=== PATIENT | female | born 1995 | race Caucasian/White ===

== ENCOUNTER 2017-04-15 15:46 | Inpatient (IN) ==
[2017-04-15] MEDS ORDERED: ONDANSETRON 4 MG/2 ML VIAL IV PRN (16:08)
[2017-04-15] MEDS ORDERED: DINOPROSTONE VAG GEL 10 MG SYRINGE VAG ONE (16:11)
[2017-04-15] MEDS ORDERED: OXYTOCIN/LR 20 UNIT/1,000 ML BAG IV SCH (16:30)
[2017-04-15 16:37] LABS: Basophils # 0.1 10*3/uL (0.0-0.2); Basophils % 0.5 % (0.0-0.8); Eosinophils # 0.1 10*3/uL (0.0-0.87); Eosinophils % 0.7 % (0.00-10.9); Hematocrit 33.9 VOL% (35.7-47.0); Hemoglobin 11.3 GM/DL (12.0-16.0); Immature Granulocytes Absolute 0.11 #; Lymphocytes # 1.7 10*3/uL (1.4-4.0); Lymphocytes % 15.5 % (21.3-54.2); Mean Corpuscular HGB Conc 33.3 GM/DL (32-36); Mean Corpuscular Hemoglobin 28 PG (27-34); Mean Corpuscular Volume 84.1 FL (87-102); Mean Platelet Volume 12.2 FL (9.6-12.0); Monocytes # 1.1 10*3/uL (0.11-0.8); Neutrophils # 7.7 10*3/uL (1.4-7.4); Neutrophils % 72.3 % (38.7-73.9); Platelet Count 179 T/CUMM (130-400); Red Blood Count 4.03 MC/CUMM (3.8-5.5); Red Cell Distribution Width 13.5 % (9.3-17.3); White Blood Count 10.7 T/CUMM (4-12)
[2017-04-15 16:58] LABS: Alanine Aminotransferase 14 U/L (13-56); Albumin 2.8 G/DL (3.4-5.0); Alkaline Phosphatase 198 U/L (45-117); Aspartate Amino Transferase 18 U/L (0-37); Bilirubin,Total < 0.39 MG/DL (0.2-1.0); Blood Urea Nitrogen 8 MG/DL (7-18); Calcium 8.5 MG/DL (8.5-10.1); Glucose 86 MG/DL (74-106); Potassium 4.1 MMOL/L (3.5-5.1); Sodium 136 MMOL/L (136-145); Total Protein 6.8 G/DL (6.4-8.3); Uric Acid 4.5 MG/DL (2.6-6.0)
--- NOTE | 2017-04-15 18:00 | OB/GYN History & Physical ---
History of Present Illness Chief complaint: In for elective induction of labor due to term . History of present illness: Ms. Nicholas is a 22 year old female primigravida with an SUMIT of 04/19/2017 for an estimated gestational age of 39 weeks and 2 days. The patient presents for elective induction of labor due to term . The risk and benefits has been thoroughly discussed with this patient and significant other, plan of care has been discussed with Dr. Crowder and all parties were in agreement plan. The patient received her care at the [facility], she received routine care and her course was uneventful. labs she is rubella immune, RPR is nonreactive, hepatitis B negative, HIV negative, GBS culture status unknown. Review of systems is negative with exception of above. Home Medications Medication Instructions Recorded Confirmed Type No Known Home Medications [No 01/29/15 01/29/15 History Known Home Medications] Allergies Allergy/AdvReac Type Severity Reaction Status Date / Time sulfamethoxazole Allergy RASH Verified 01/29/15 12:08 [From Bactrim] trimethoprim [From Bactrim] Allergy RASH Verified 01/29/15 12:08 12 point system: reviewed and no additional remarkable complaints except as stated Medical,Surgical,& Family Hx - Medical History Medical History: noncontributory - Surgical History Surgical History: noncontributory - Family History Family History: Reports;: Family Cancer (GRANDFATHER PROSTATE), Family Diabetes (Uncle), Family Hypertension (Father and uncle) - Social History Smoking Status: Never smoker Frequency of Alcohol Use: None Type of Drug Use: None Marital Status: Single Lives With:: Significant Other Functional capacity: 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 General appearance: no acute distress - Antepartum / Post Antepartum Exam Cervix - Dilatation: 2 cm Effacement: 50% Station: -2 Rupture: Intact Presentation: Vertex Heart Rate: 140s Breast: bilateral: normal Abdomen obstetrics: Present: bowel sounds normal Vulva: bilateral: normal Vagina: Present: normal moisture Cervix: Present: normal Uterus exam: Present: enlarged Anus/Rectum: Present: normal perianal skin - Respiratory Respiratory exam: Present: clear to auscultation bilaterally - Cardiovascular Cardiovascular exam: Present: regular rate and rhythm - GI/Abdominal GI/Abdominal exam: Present: normal bowel sounds, soft - Extremities Exam Extremities exam: Present: normal inspection - Back Exam Back exam: Present: normal inspection - Neurological Exam Neurological exam: Present: alert, oriented X3 - Psychiatric Psychiatric exam: Present: normal affect, normal mood - Skin Skin exam: Present: normal color, warm Assessment and Plan (1) 39 weeks gestation of Status: Acute Assessment and plan: Admit IV fluids IV Pitocin per protocol Artificial rupture membranes when appropriate Internal monitors if indicated Epidural anesthesia if desired IV antibiotics prophylactically for unknown GBS status Anticipate Current Visit: Yes Results - Labs CBC & BMP: 04/15/17 16:24 04/15/17 16:23
[2017-04-15] MEDS: LACTATED RINGERS 1,000 ML IV SCH ×2 (18:08→22:47)
[2017-04-15] MEDS ORDERED: FAMOTIDINE 20 MG/2 ML VIAL IV ONE (18:40)
[2017-04-15] MEDS ORDERED: CITRIC ACID/SODIUM CITRATE 30 ML UDCUP PO ONE (18:40)
[2017-04-15] MEDS ORDERED: fentaNYL 2 MCG/ROPIV 0.2% EPID 150 ML EPIDURAL SCH (18:40)
[2017-04-15] MEDS ORDERED: hydrOXYzine HCL 25 MG/1 ML VIAL IM PRN (18:40)
[2017-04-15] MEDS ORDERED: diphenhydrAMINE 50 MG/1 ML VIAL IV PRN ×2 (18:40)
[2017-04-15] MEDS ORDERED: ePHEDrine 50 MG/ML AMP IV PRN (18:40)
[2017-04-15] MEDS ORDERED: PROMETHAZINE 25 MG/1 ML VIAL IM ONE (18:40)
[2017-04-15] MEDS ORDERED: LACTATED RINGERS 1,000 ML IV ONE (18:40)
[2017-04-16] MEDS ORDERED: AMPICILLIN INJ 2,000 MG in SODIUM CHLORIDE 0.9% 100 ML IV ONE ×2 (00:05→03:00)
[2017-04-16 00:21] LABS: Apearance,Urine Slightly Hazy (Clear); Bilirubin,Urine Negative (Negative); Blood, Urine Negative (Negative); Glucose,Urine (UA) Negative (Negative); Ketones,Urine 80 mg/dL (Negative); Mucus,Urine Moderate /LPF (Occasional); Nitrite,Urine Negative (Negative); Protein,Urine Negative; RBC,Urine 1 /HPF (0-4); Squamous Epithelial Cell,Urine Occasional /HPF (0-10); Urine Color Yellow (Yellow); Urine Specific Gravity 1.023 (1.001-1.035); Urine Urobilinogen < 2.0 EU/DL (0.2-1.0); WBC,Urine 2 /HPF (0-6)
[2017-04-16] MEDS ORDERED: OXYTOCIN/LR 20 UNIT/1,000 ML BAG IV SCH (03:00)
--- NOTE | 2017-04-16 04:01 | Event Note ---
0350: Artificial rupture of membranes performed with clear fluid noted. Vaginal exam performed; the patient is 4 cm dilated/90% effaced/vertex is presenting at a -2 station. She has an epidural and is comfortable.
[2017-04-16] MEDS: AMPICILLIN INJ 1,000 MG in SODIUM CHLORIDE 0.9% 100 ML IV SCH ×2 (04:03→10:24)
[2017-04-16] MEDS ORDERED: AMPICILLIN INJ 1,000 MG in SODIUM CHLORIDE 0.9% 100 ML IV SCH (07:00)
[2017-04-16] MEDS ORDERED: MEPERIDINE 50 MG/1 ML VIAL ONE (10:17)
--- NOTE | 2017-04-16 10:21 | Event Note ---
HPI: Ms. Varma presented to the labor department for elective induction of labor due to term . Her labor was induced with Prostin gel and IV Pitocin per protocol. The risk and benefits were thoroughly discussed with this patient and significant, plan of care was also discussed with Dr. Crowder and all parties were in agreement with plan. Stage I: The patient was admitted and received IV fluids and Prostin gel per protocol. She progressed in labor throughout the night with a CAT 1 tracing. Artificial rupture membranes was performed clear fluid noted. The patient received an epidural for pain control. She continued to progress in labor with a CAT 1 tracing. She had an uneventful course of labor. Stage II: The patient was complete and complained of pressure and strong desire to push. She pushed for approximately 45 minutes after which time a second- degree midline episiotomy was performed. She pushed for approximately 5 more minutes after this. The infant's head was then delivered, the mouth and nose were suctioned on the perineum. The remainder the was delivered at 957, a viable male was noted. Apgars were 9 at 1 minute and 9 at 5 minutes. weight was 8 pounds even. A cord pH was obtained and sent to the lab. The infant was placed on the mom's abdomen for skin to skin bonding Stage III: A spontaneous delivery of a Castaneda placenta with a three-vessel cord noted. The placenta was further examined. Grossly intact. The vagina cervix inspected with no additional tears or lacerations noted. The episiotomy was repaired in the usual fashion. Epidural anesthesia remain in effect on repair. Estimated blood loss was approximately 200 cc. At the time of dictation mother and baby are both in stable condition.
[2017-04-16 10:27] LABS: Cord Venous Blood PCO2 36.8 MMHG; Cord Venous Blood PO2 39.6
[2017-04-16] MEDS ORDERED: ACETAMINOPHEN/CODEINE 300-30 MG TABLET PO PRN (10:28)
[2017-04-16] MEDS ORDERED: IBUPROFEN 800 MG TABLET ONE (11:30)
[2017-04-16] MEDS ORDERED: RHO(D) IMMUNE GLOBULIN 300 MCG SYRINGE IM ONE (11:34)
[2017-04-16] MEDS ORDERED: MEASLES/MUMPS/RUBELLA VACCINE 0.5 ML VIAL SUBCUT ONE (11:34)
[2017-04-16] MEDS ORDERED: BISACODYL 10 MG SUPP RECTAL PRN (11:34)
[2017-04-16] MEDS ORDERED: WITCH HAZEL PADS 100/JAR TOP PRN (11:34)
[2017-04-16] MEDS ORDERED: LANOLIN 50% CREAM 0.3 OZ TUBE TOP PRN (11:34)
[2017-04-16] MEDS ORDERED: BENZOCAINE 20%/MENTHOL 0.5% SPRAY 56 GM CAN TOP PRN (11:34)
[2017-04-16] MEDS ORDERED: HYDROCORTISONE 2.5% RECTAL CREAM 30 GM TUBE TOP PRN (11:34)
[2017-04-16] MEDS ORDERED: ACETAMINOPHEN 325 MG TABLET PO PRN (11:34)
[2017-04-16] MEDS ORDERED: DIPH/TET/ACEL PERT BOOSTER VACCINE 0.5 ML VIAL IM ONE (11:34)
[2017-04-16] MEDS: IBUPROFEN 800 MG TABLET PO PRN ×2 (12:00→20:15)
[2017-04-16] MEDS ORDERED: OXYTOCIN/LR 20 UNIT/1,000 ML BAG IV ONE (12:57)
[2017-04-16] MEDS: oxyCODONE/ACETAMINOPHEN 5-325 MG TABLET PO PRN ×2 (17:00→22:50)
--- NOTE | 2017-04-16 18:12 | Anesthesia Post-Op ---
Anesthesia Post OP - Post Ansesthetic Evaluation Patient seen in post op: Yes Resp: within normal limits CV: within normal limits Mental: within normal limits Temp: within normal limits [id number]: within normal limits Nausea and Vomiting: within normal limits Pain: within normal limits
[2017-04-16] MEDS: DOCUSATE SODIUM 100 MG CAPSULE PO SCH (21:16)
[2017-04-17] MEDS: IBUPROFEN 800 MG TABLET PO PRN ×3 (02:30→18:05)
[2017-04-17 06:18] LABS: Basophils # 0.1 10*3/uL (0.0-0.2); Basophils % 0.4 % (0.0-0.8); Eosinophils # 0.1 10*3/uL (0.0-0.87); Eosinophils % 0.9 % (0.00-10.9); Hematocrit 24.3 VOL% (35.7-47.0); Immature Granulocytes % 0.9 %; Immature Granulocytes Absolute 0.11 #; Lymphocytes # 2.3 10*3/uL (1.4-4.0); Lymphocytes % 19.6 % (21.3-54.2); Mean Corpuscular HGB Conc 32.9 GM/DL (32-36); Mean Corpuscular Hemoglobin 28 PG (27-34); Mean Corpuscular Volume 84.7 FL (87-102); Mean Platelet Volume 12.4 FL (9.6-12.0); Monocytes # 1.2 10*3/uL (0.11-0.8); Monocytes % 10.5 % (1.7-12.7); Neutrophils % 67.7 % (38.7-73.9); Platelet Count 126 T/CUMM (130-400); Red Blood Count 2.87 MC/CUMM (3.8-5.5); Red Cell Distribution Width 13.6 % (9.3-17.3); White Blood Count 11.8 T/CUMM (4-12)
[2017-04-17] MEDS: oxyCODONE/ACETAMINOPHEN 5-325 MG TABLET PO PRN ×3 (07:37→20:33)
[2017-04-17] MEDS: DOCUSATE SODIUM 100 MG CAPSULE PO SCH ×2 (09:06→20:33)
[2017-04-17] MEDS: FERROUS SULFATE 325 MG TABLET PO SCH ×2 (09:06→20:33)
--- NOTE | 2017-04-17 09:35 | OB/GYN Progress Note ---
Assessment and Plan (1) 39 weeks gestation of Status: Acute Assessment and plan: Admit IV fluids IV Pitocin per protocol Artificial rupture membranes when appropriate Internal monitors if indicated Epidural anesthesia if desired IV antibiotics prophylactically for unknown GBS status Anticipate Current Visit: Yes (2) Vaginal delivery Status: Acute Assessment and plan: Initiate routine orders. 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 Bonding well with infant. 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 Vitals: Vital Signs Temp Pulse Resp BP Pulse Ox 04/17/17 07:25 96.8 F L 88 18 102/57 97 04/17/17 06:00 17 04/17/17 05:00 17 04/17/17 04:00 97.8 F 82 17 90/51 96 04/17/17 03:00 17 04/17/17 01:00 17 04/17/17 00:00 97.3 F L 93 H 18 95/63 96 04/16/17 20:00 97.3 F L 99 H 19 100/58 99 04/16/17 15:34 97.7 F 91 H 20 115/63 98 04/16/17 14:30 90 20 119/67 98 04/16/17 13:30 90 20 117/63 99 04/16/17 12:30 105 H 18 116/67 99 04/16/17 12:00 102 H 20 117/68 99 04/16/17 11:30 97.0 F L 91 H 18 116/73 99 General appearance: no acute distress - Antepartum / Post Post Exam Abdomen obstetrics: Present: bowel sounds normal Vagina: Present: normal moisture, discharge (Light to moderate lochia rubra) Uterus exam: Present: enlarged (Fundus firm and midline) Anus/Rectum: Present: normal perianal skin - Head Head exam: Present: normal inspection - Respiratory Respiratory exam: Present: clear to auscultation bilaterally - Cardiovascular Cardiovascular exam: Present: regular rate and rhythm - GI/Abdominal GI/Abdominal exam: Present: normal bowel sounds, soft - Extremities Exam Extremities exam: Present: normal inspection - Neurological Exam Neurological exam: Present: alert, oriented X3 - Psychiatric Psychiatric exam: Present: normal affect, normal mood - Skin Skin exam: Present: normal color, warm Results - Labs CBC & BMP: 04/17/17 05:41 04/15/17 16:23
[2017-04-18] MEDS: IBUPROFEN 800 MG TABLET PO PRN (00:46)
[2017-04-18] MEDS: oxyCODONE/ACETAMINOPHEN 5-325 MG TABLET PO PRN ×2 (03:55→10:11)
[2017-04-18 07:48] VITALS: BP 104/63
--- NOTE | 2017-04-18 09:12 | Discharge Summary ---
Hospital Course - Hospital Course Hospital Course: Ms. Nicholas presented to the labor department for elective induction of labor due to term . She subsequently delivered a viable infant with no complications. She has followed a normal postoperative course and she has done well. Her bleeding is minimal with no odor. Her fundus is firm midline. Her perineum is intact with no edema. Her bleeding is minimal with no odor. Her vital signs and lab values are stable. She is bonding well with her infant. Contraception options has been discussed with this patient and she desires to take OCPs upon discharge. She will be discharged home prescriptions for pain and follow-up appointment in our office. Diagnosis - Discharge Diagnosis (1) 39 weeks gestation of Status: Acute (2) Vaginal delivery Status: Acute Specialty Discharge - Follow Up or Referrals Follow up with: Daphne Crowder MD [Physician] - 05/30/17 9:20 am Discharge Plan - Discharge Data Disposition: Disch To Home/Self Care Condition at Discharge: Discharge Diet: advance to your usual diet, regular diet Activity: resume usual activities as tolerated Hygiene: no restrictions Weight Bearing at Discharge: weight bear as tolerated Driving: no restrictions Contact your physician if you experience:: fever over 101, Difficulty voiding, Shortness of breath, pain uncontrolled by pain medications - Discharge Medications New Ferrous Sulfate Tab [Feosol Original Tab] 325 mg PO BID #60 tablet Acetamin/Codeine 300-30 Tab [Tylenol/Codeine #3] 2 tablet PO Q4H PRN #30 tablet PRN Reason: Pain Mild (1-3) Ibuprofen Tab [Motrin Tab] 800 mg PO Q6H PRN #30 tablet PRN Reason: Pain Moderate (4-7) No Action No Known Home Medications [No Known Home Medications] - Follow Up or Referral Follow Up: Daphne Crowder MD [Physician] - 05/30/17 9:20 am - Forms/Instructions Exam - Constitutional Vitals: Period Temp Pulse Resp BP Sys/Warren Pulse Ox Last 24 Hr 97.0 F-98.3 F 72-97 16-20 104-115/63-72 96-98 General appearance: normal weight, no acute distress - Respiratory Respiratory exam: Present: clear to auscultation bilaterally - Cardiovascular Cardiovascular exam: Present: regular rate and rhythm - GI/Abdominal GI/Abdominal exam: Present: normal bowel sounds, soft - Extremities Exam Extremities exam: Present: normal inspection - Back Exam Back exam: Present: normal inspection - Neurological Exam Neurological exam: Present: alert, oriented X3 - Psychiatric Psychiatric exam: Present: normal affect, agitated - Skin Skin exam: Present: normal color, warm DS: Provider Date of admission: 04/15/17 16:09 Primary care physician: . No PCP Attending physician on admission: Daphne Crowder MD Consults: 04/15/17 16:09 Consult to Anesthesiology [CONS] Routine Consulting Provider: Reason for Anesthesiology: Epidural Consult Comment: Epidural for pain managment 04/16/17 11:34 Consult to Utility Operator Yarn [CONS] Routine Consult Utility Operator Yarn: Breast Feeding Discharging clinician: Leanna Callaway CNM Expected date of discharge: 04/18/17
[2017-04-18] MEDS: FERROUS SULFATE 325 MG TABLET PO SCH (09:24)
[2017-04-18] MEDS: DOCUSATE SODIUM 100 MG CAPSULE PO SCH (09:24)
== END 2017-04-18 13:50 | disposition home or self-care (01) | DRG 560 ==
LOC: N.LDOUT 15:46 → N.LD 15:49 → N.OB 04-16 11:27
PROVIDERS: ADMIT Obstetrics & Gynecology; ATTEND Obstetrics & Gynecology

== ENCOUNTER 2020-03-16 20:50 | Inpatient (IN) ==
[2020-03-16] MEDS ORDERED: ACETAMINOPHEN 325 MG TABLET PO PRN (21:16)
[2020-03-16] MEDS ORDERED: MEPERIDINE 50 MG/1 ML VIAL IM PRN (21:16)
[2020-03-16] MEDS ORDERED: SIMETHICONE CHEW 125 MG TABLET PO PRN (21:59)
[2020-03-16 22:02] LABS: Basophils % 0.4 % (0.0-0.8); Eosinophils # 0.1 10*3/uL (0.0-0.87); Eosinophils % 0.4 % (0.00-10.9); Hemoglobin 11.6 GM/DL (12.0-16.0); Immature Granulocytes % 0.7 %; Immature Granulocytes Absolute 0.08 #; Lymphocytes # 2.1 10*3/uL (1.4-4.0); Lymphocytes % 18.6 % (21.3-54.2); Mean Corpuscular HGB Conc 31.4 GM/DL (32-36); Mean Corpuscular Volume 83.9 FL (87-102); Mean Platelet Volume 12.1 FL (9.6-12.0); Monocytes % 9.6 % (1.7-12.7); Neutrophils % 70.3 % (38.7-73.9); Platelet Count 179 T/CUMM (130-400); Red Blood Count 4.41 MC/CUMM (3.8-5.5); Red Cell Distribution Width 17.7 % (9.3-17.3); White Blood Count 11.3 T/CUMM (4-12)
[2020-03-16] MEDS ORDERED: ALUMINUM/MAGNES/SIMETH MAX STR 30 ML UDCUP PO PRN (23:27)
[2020-03-17] MEDS: ONDANSETRON 4 MG/2 ML VIAL IV PRN ×3 (00:45→12:52)
[2020-03-17] MEDS: BUTORPHANOL 2 MG/ML VIAL IV PRN ×3 (00:48→06:29)
[2020-03-17] MEDS: LACTATED RINGERS 1,000 ML IV SCH ×2 (07:22→07:30)
[2020-03-17] MEDS ORDERED: ePHEDrine 50 MG/ML VIAL IV PRN (07:23)
[2020-03-17] MEDS ORDERED: PROMETHAZINE 25 MG/1 ML VIAL IM PRN (07:23)
[2020-03-17] MEDS ORDERED: NALOXONE 0.4 MG/ML VIAL IV PRN (07:23)
[2020-03-17] MEDS ORDERED: hydrOXYzine HCL 25 MG/1 ML VIAL IM PRN (07:23)
[2020-03-17] MEDS ORDERED: FAMOTIDINE 20 MG/2 ML VIAL IV ONE (07:23)
[2020-03-17] MEDS ORDERED: CITRIC ACID/SODIUM CITRATE 30 ML UDCUP PO ONE (07:23)
[2020-03-17] MEDS ORDERED: diphenhydrAMINE 50 MG/1 ML VIAL IV PRN ×2 (07:23)
[2020-03-17] MEDS ORDERED: OXYTOCIN/LR 20 UNIT/1,000 ML BAG IV SCH (07:30)
[2020-03-17] MEDS ORDERED: fentaNYL 2 MCG/ROPIV 0.2% EPID 100 ML EPIDURAL SCH (07:30)
[2020-03-17] MEDS ORDERED: MEPERIDINE 50 MG/1 ML VIAL IV PRN (08:11)
[2020-03-17] MEDS ORDERED: miSOPROStoL 200 MCG TABLET ONE (11:40)
[2020-03-17] MEDS ORDERED: TRANEXAMIC ACID 1,000 MG/10 ML VIAL ONE (11:41)
[2020-03-17] MEDS ORDERED: METHYLERGONOVINE 0.2 MG/1 ML AMP ONE (11:41)
[2020-03-17] MEDS ORDERED: CARBOPROST TROMETHAMINE 250 MCG/ML AMP IM ONE (11:41)
[2020-03-17 11:52] LABS: Amorphous Crystals,Urine Moderate /HPF (Few); Apearance,Urine Slightly Hazy (Clear); Bilirubin,Urine Negative (Negative); Blood, Urine Negative (Negative); Glucose,Urine (UA) Negative (Negative); Ketones,Urine 20 mg/dL (Negative); Mucus,Urine Occasional /LPF (Occasional); Nitrite,Urine Negative (Negative); Protein,Urine Negative; RBC,Urine 1 /HPF (0-4); Urine Color Yellow (Yellow); Urine Specific Gravity 1.015 (1.001-1.035); Urine Urobilinogen < 2.0 EU/DL (0.2-1.0)
[2020-03-17] MEDS ORDERED: BISACODYL 10 MG SUPP RECTAL PRN (12:08)
[2020-03-17] MEDS ORDERED: BENZOCAINE 20%/MENTHOL 0.5% SPRAY 56 GM CAN TOP PRN (12:08)
[2020-03-17] MEDS ORDERED: WITCH HAZEL PADS 100/JAR TOP PRN (12:08)
[2020-03-17] MEDS ORDERED: HYDROCORTISONE 2.5% RECTAL CREAM 30 GM TUBE TOP PRN (12:08)
[2020-03-17] MEDS ORDERED: MEASLES/MUMPS/RUBELLA VACCINE 0.5 ML VIAL SUBCUT ONE (12:08)
[2020-03-17] MEDS ORDERED: LANOLIN 50% CREAM 0.3 OZ TUBE TOP PRN (12:08)
[2020-03-17] MEDS ORDERED: DIPH/TET/ACEL PERT BOOSTER VACCINE 0.5 ML VIAL IM ONE (12:08)
[2020-03-17] MEDS ORDERED: oxyCODONE/ACETAMINOPHEN 5-325 MG TABLET PO PRN (12:08)
[2020-03-17] MEDS ORDERED: ONDANSETRON 4 MG/2 ML VIAL IV PRN (12:08)
[2020-03-17] MEDS ORDERED: RHO(D) IMMUNE GLOBULIN 300 MCG SYRINGE IM ONE (12:08)
[2020-03-17] MEDS ORDERED: ACETAMINOPHEN 325 MG TABLET PO PRN (12:08)
[2020-03-17] MEDS ORDERED: OXYTOCIN/LR 20 UNIT/1,000 ML BAG IV ONE (12:08)
[2020-03-17 12:16] LABS: Cord Arterial Blood HCO3 27.1 MMOL/L
[2020-03-17 12:19] LABS: Cord Venous Blood HCO3 24.2 MMOL/L; Cord Venous Blood PCO2 41.4 MMHG
[2020-03-17] MEDS ORDERED: ONDANSETRON 4 MG TABLET PO PRN (16:08)
[2020-03-17] MEDS: IBUPROFEN 800 MG TABLET PO PRN ×2 (16:30→22:47)
[2020-03-17] MEDS: oxyCODONE/ACETAMINOPHEN 5-325 MG TABLET PO PRN ×2 (16:30→22:47)
[2020-03-17] MEDS: DOCUSATE SODIUM 100 MG CAPSULE PO SCH (21:17)
[2020-03-18] MEDS: oxyCODONE/ACETAMINOPHEN 5-325 MG TABLET PO PRN (05:08)
[2020-03-18] MEDS: IBUPROFEN 800 MG TABLET PO PRN (05:09)
[2020-03-18 07:01] LABS: Basophils # 0.1 10*3/uL (0.0-0.2); Basophils % 0.6 % (0.0-0.8); Eosinophils # 0.1 10*3/uL (0.0-0.87); Eosinophils % 0.7 % (0.00-10.9); Hematocrit 33.1 VOL% (35.7-47.0); Hemoglobin 10.4 GM/DL (12.0-16.0); Immature Granulocytes % 0.6 %; Immature Granulocytes Absolute 0.06 #; Lymphocytes # 2.1 10*3/uL (1.4-4.0); Lymphocytes % 19.4 % (21.3-54.2); Mean Corpuscular HGB Conc 31.4 GM/DL (32-36); Mean Corpuscular Volume 85.1 FL (87-102); Mean Platelet Volume 12.5 FL (9.6-12.0); Monocytes % 9.5 % (1.7-12.7); Neutrophils % 69.2 % (38.7-73.9); Platelet Count 141 T/CUMM (130-400); Red Blood Count 3.89 MC/CUMM (3.8-5.5); Red Cell Distribution Width 17.7 % (9.3-17.3); White Blood Count 10.8 T/CUMM (4-12)
[2020-03-18] MEDS: DOCUSATE SODIUM 100 MG CAPSULE PO SCH (10:27)
[2020-03-18 12:37] VITALS: BP 104/80
== END 2020-03-18 16:20 | disposition home or self-care (01) | DRG 560 ==
LOC: N.LDOUT 20:50 → N.LD 20:55 → N.OB 03-17 14:51
PROVIDERS: ADMIT Obstetrics & Gynecology; ATTEND Obstetrics & Gynecology